=== PATIENT | female | born 2000 | race Caucasian/White ===

== ENCOUNTER 2024-10-26 10:51 | Outpatient (REF) | payer OTHER, SELFPAY ==
--- NOTE | ~2024-10-26 | XR_ITS ---
CLINICAL HISTORY: R05.9 - Cough, unspecified Two views of the chest. COMPARISON: None FINDINGS: Normal heart and mediastinal contours. No consolidation. No pleural effusion or pneumothorax. No fracture identified. IMPRESSION: 1. No consolidation. This document has been electronically signed by: Stalin Palomino MD on 10/26/2024 14:31:34
--- OUTSIDE RECORDS SUMMARY | 2024-10-26 13:22 | XMS_ITS | Encounter Summary ---
Author Organization [facility] Address [address] [place] [address] Care Team Providers Care Roll Forming Machine Set Up Operator Name Role Phone Thelma Izaguirre MD Primary Care Provider [phone] Encounter Details Date Type Department Care Team Description 08/21/2020 Orders Only Medical Records [address] [place] [address] Gerry Reid MD [address] [facility] [address] [place] [address] Social History Tobacco Use Types Packs/Day Years Used Date Smoking Tobacco: Passive Smo ke Exposure - Never Smoker Smokeless Tobacco: Never Comments:mom and step dad Alcohol Use Standard Drinks/Week Comments Yes 0 (1 standard drink = 0.6 oz pur e alcohol) Education Answer Date Recorded What is the highest level of school you have completed or the highest degree you have received? Associate degree: academic program 03/10/2020 Sex Assigned at Date Recorded Not on file Job Start Date Occupation Industry Not on file Not on file Not on file COVID-19 Exposure Response Date Recorded In the last month, have you been in contact with someone who was confirmed or suspected to have Coronavirus / COVID-19? No / Unsure 07/23/2020 2:24 PM EST documented as of this encounter Plan of Treatment Not on file documented as of this encounter Procedures Procedure Name Priority Date/Time Associated Diagnosis Comments OUTSIDE PATHOLOGY Routine 08/18/2020 documented in this encounter Results * OUTSIDE PATHOLOGY (08/18/2020) Gerry Reid MD OUTSIDE LAB documented in this encounter Visit Diagnoses Not on filedocumented in this encounter Care Teams Roll Forming Machine Set Up Operator Relationship Specialty Start Date End Date Thelma Izaguirre MD [address] [place] [address] PCP - General Internal Medicine 03/04/20 documented as of this encounter
--- OUTSIDE RECORDS SUMMARY | 2024-10-26 13:23 | XMS_ITS | Encounter Summary ---
Author Organization [facility] Address [address] [place] [address] Care Team Providers Care Admitting Manager Name Role Phone Cynthia Craven MD Primary Care Provider Thelma Clarke MD Primary Care Provider [phone] Reason for Visit * Reason Onset Date Comments Testing 05/19/2017 Cat scan of Pelv is CPT-36931 Encounter Details Date Type Department Care Team Description 05/19/2017 Telephone Pediatrics - [address] [address] Cynthia Craven MD Testing (Cat scan of Pelvis [id number]) Social History Tobacco Use Types Packs/Day Years Used Date Smoking Tobacco: Never Smokeless Tobacco: Never Comments:mom smoke Alcohol Use Standard Drinks/Week Comments No 0 (1 standard drink = 0.6 oz pur e alcohol) Sex Assigned at Date Recorded Not on file Job Start Date Occupation Industry Not on file Not on file Not on file documented as of this encounter Patient Instructions * Patient Instructions* Elaina Naranjo CNM - 05/29/2017 12:34 PM EDT I'm unable to complete the Peer to Peer review as Lila Rockwell put Shayy Craven's name on my orderfor CT scan. This took a lot of time to figure out so unless the authorization changes I will not be able to procced documented in this encounter Miscellaneous Notes * Telephone Encounter - Elaina Naranjo CNM - 05/29/2017 12:29 PM EDT sa * Telephone Encounter - Lila Hilton - 05/19/2017 1:43 PM EDT Insurance denied the cat scan of the pelvis CPT-[id number]. For peer to peer reconsideration please call option #4 Case #[id number] Please advise Thank you documented in this encounter Plan of Treatment Not on file documented as of this encounter Visit Diagnoses Not on filedocumented in this encounter Care Teams Admitting Manager Relationship Specialty Start Date End Date Cynthia Craven MD PCP - General 10/15/08 03/03/20 Thelma Izaguirre MD [address] [place] [id number] PCP - General Internal Medicine 03/04/20 documented as of this encounter
--- OUTSIDE RECORDS SUMMARY | 2024-10-26 13:23 | XMS_ITS | Encounter Summary ---
Author Organization [facility] Address [address] [place] [address] Care Team Providers Care Office Services Assistant Name Role Phone Thelma Izaguirre MD Primary Care Provider [phone] Encounter Details Date Type Department Care Team Description 09/02/2020 Orders Only Adult Medicine [address] [id number] Thelma Izaguirre MD [address] [place] [phone] Preoperative examination (Primary Dx) Social History Tobacco Use Types Packs/Day Years [...] have Coronavirus / COVID-19? No / Unsure 09/02/2020 2:10 PM EST documented as of this encounter Plan of Treatment Not on file documented as of this encounter Visit Diagnoses Diagnosis Preoperative examination- Primary Preoperative examination, unspecified documented in this encounter Care Teams Office Services Assistant Relationship Specialty Start Date End Date Thelma Izaguirre MD [address] [place] [address] PCP - General Internal Medicine 03/04/20 documented as of this encounter
--- OUTSIDE RECORDS SUMMARY | 2024-10-26 13:23 | XMS_ITS | Encounter Summary ---
Author Organization [facility] Address [address] [place] [address] Care Team Providers Care Adaptive Physical Education Teacher Name Role Phone Cynthia Craven MD Primary Care Provider Thelma Clarke MD Primary Care Provider [phone] Encounter Details Date Type Department Care Team Description 10/27/2015 Notching Press Operator Report Medical Records [address] [place] [address] Dmitri Chavez Social History Tobacco Use Types Packs/Day Years Used Date Smoking Tobacco: Never Smokeless Tobacco: Never Comments:mom smoke Alcohol Use Standard Drinks/Week Comments No 0 (1 standard drink = 0.6 oz pur e alcohol) Sex Assigned at Date Recorded Not on file Job Start Date Occupation Industry Not on file Not on file Not on file documented as of this encounter Plan of Treatment Not on file documented as of this encounter Visit Diagnoses Not on filedocumented in this encounter Care Teams Adaptive Physical Education Teacher Relationship Specialty Start Date End Date Cynthia Craven MD PCP - General 10/15/08 03/03/20 Thelma Izaguirre MD [address] [place] [address] PCP - General Internal Medicine 03/04/20 documented as of this encounter
--- OUTSIDE RECORDS SUMMARY | 2024-10-26 13:23 | XMS_ITS | Encounter Summary ---
Author Organization [facility] Address [address] [place] [phone] Care Team Providers Care Alarm Security Or Surveillance Monitor Name Role Phone Thelma Izaguirre MD Primary Care Provider [phone] Reason for Visit * Reason Onset Date Comments medication problems 10/11/2024 Encounter Details Date Type Department Care Team ([facility] Contact Info) Description 10/11/2024 [facility] [address] [place] [address] Karina Walker CN [address] [place] [address] medication problems Social History Tobacco Use Types [...] accepting calls. Will try again later. * Felicitas Dejesus - 10/11/2024 9:40 AM EST Chief Complaint/problem: pt has been having cramping since insert of mirena. Has been bleeding x8 days. Not heavy, not spotting. Asking to speak with nurse How long has the patient had this problem? Pt???s MEDICAL CARE MANAGER provider: Karina Walker CNM Last menstrual period (LMP) or EDC (due date): documented in this encounter Plan of Treatment Upcoming Encounters Date Type Department Care Team (Late st Contact Info) Description 11/11/2024 8:30 AM EDT Office Visit Obstetrics [facility]necology - [facility] [address] [place], [place] [phone] Karina Walker CNM [address] [place] [address] documented as of this encounter Visit Diagnoses Not on filedocumented in this encounter Care Teams Alarm Security Or Surveillance Monitor Relationship Specialty Start Date End Date Thelma Izaguirre MD [address] [place] [address] PCP - General Internal Medicine 03/04/20 documented as of this encounter
--- OUTSIDE RECORDS SUMMARY | 2024-10-26 13:23 | XMS_ITS | Encounter Summary ---
Author Organization [facility] Address [address] [place] [address] Care Team Providers Care Art Manager Name Role Phone Cynthia Craven MD Primary Care Provider Thelma Clarke MD Primary Care Provider [phone] Reason for Visit * Reason Onset Date Comments IMPLANON/NEXPLANON REMOVAL 03/01/2017 Encounter Details Date Type Department Care Team Description 03/01/2017 Telephone OBGYN - [place] [address] [place] [address] Elaina Naranjo CNM IMPLANON/NEXPLANON REMOVAL Social History Tobacco Use Types Packs/Day Years Used Date Smoking Tobacco: Never Smokeless Tobacco: Never Comments:mom smoke Alcohol Use Standard Drinks/Week Comments No 0 (1 standard drink = 0.6 oz pur e alcohol) Sex Assigned at Date Recorded Not on file Job Start Date Occupation Industry Not on file Not on file Not on file documented as of this encounter Miscellaneous Notes * Telephone Encounter - Toshia Sheppard M.A. - 03/13/2017 1:37 PM EDT Left message for patient. [employer] is good for Nexplanon. Patient can book nexplanon exchange with Elaina at her convenence. CMB * Telephone Encounter - Elaina Naranjo CNM - 03/13/2017 1:03 PM EDT Yes as long as someone clears her insurance for this * Telephone Encounter - ROGELIO Kyle, RN - 03/10/2017 4:51 PM EDT Called, pts mother Vandana answered, +verbal on file. Discussed notes below. She states patient is not comfortable with IUD for contraception or period control. States pt and her want nexplanon removal and another nexplanon placed. States nexplanon is due to be removed and states pt wants another nexplanon. Advised will send message to provider to see if ok to book nexplanon exchange. Please advise, ok to book nexplanon enxchange? * Telephone Encounter - Toshia Sheppard M.A. - 03/02/2017 9:10 AM EDT Left message for patient. CMB * Telephone Encounter - Yumiko Vera - 03/01/2017 3:16 PM EDT Pt returned call. Pt would like call to be made to her mother, Vandana, verbal - [phone] * Telephone Encounter - Toshia Sheppard M.A. - 03/01/2017 3:06 PM EDT Left message for patient. CMB 'Discussed option for treatment, consider changing to Davina, booklet given Will monitor for now and desires treatment or other contraception will need follow up appointment' ( Note from Elaina 05/05/16) Patient will need to make nexplanon removal consult appt. * Telephone Encounter - Yumiko Vera - 03/01/2017 3:00 PM EDT Chief Complaint/problem: Pt called to make an appointment to have her Nexplanon removed. Pt did notwish to make an appt for bc consult, states this was discussed at 05/05/16 visit with Elaina. MAYNOR checked and did not see notes or an ok for removal. Please advise, thank you. How long has the patient had this problem? Pt???s [employer]APLE [employer] provider: Elaina Naranjo CNM Last menstrual period (LMP) or EDC (due date): N/A documented in this encounter Plan of Treatment Not on file documented as of this encounter Visit Diagnoses Not on filedocumented in this encounter Care Teams Art Manager Relationship Specialty Start Date End Date Cynthia Craven MD PCP - General 10/15/08 03/03/20 Thelma Izaguirre MD [address] [place] [phone] PCP - General Internal Medicine 03/04/20 documented as of this encounter
--- OUTSIDE RECORDS SUMMARY | 2024-10-26 13:23 | XMS_ITS | Encounter Summary ---
Author Organization [facility] Address [address] [place] [address] Care Team Providers Care Furnace Repairer Helper Name Role Phone Cynthia Craven MD Primary Care Provider Thelma Clarke MD Primary Care Provider [phone] Encounter Details Date Type Department Care Team Description 05/24/2016 School Age Program Associate Report Medical Records [address] [place] [address] Venu Bhardwaj PA-C Social History Tobacco Use Types Packs/Day Years [...] on filedocumented in this encounter Care Teams Furnace Repairer Helper Relationship Specialty Start Date End Date Cynthia Craven MD PCP - General 10/15/08 03/03/20 Thelma Izaguirre MD [address] [place], [place] [id number] PCP - General Internal Medicine 03/04/20 documented as of this encounter
--- OUTSIDE RECORDS SUMMARY | 2024-10-26 13:23 | XMS_ITS | Encounter Summary ---
Author Organization [facility] Address [address] [place] [address] Care Team Providers Care Supervisor Core Shop Name Role Phone Thelma Izaguirre MD Primary Care Provider [phone] Reason for Visit * Reason Onset Date Comments REFERRAL 07/20/2021 Encounter Details Date Type Department Care Team Description 07/20/2021 Telephone General Surgery - [address] [place] [phone] Aníbal Styles PA-C REFERRAL Social History Tobacco Use Types Packs/Day Years [...] have Coronavirus / COVID-19? No / Unsure 07/20/2021 12:52 PM EST documented as of this encounter Miscellaneous Notes * Telephone Encounter - [place] - 07/20/2021 3:21 PM EST Patient said she is studying abroad next semester and would like to schedule consultation when she comes back in December. Closing referral. Reaching out to Aníbal Styles to inform patient will wait to schedule. documented in this encounter Plan of Treatment Not on file documented as of this encounter Visit Diagnoses Not on filedocumented in this encounter Care Teams Supervisor Core Shop Relationship Specialty Start Date End Date Thelma Izaguirre MD [address] [place] [id number] PCP - General Internal Medicine 03/04/20 documented as of this encounter
--- OUTSIDE RECORDS SUMMARY | 2024-10-26 13:23 | XMS_ITS | Encounter Summary ---
Author Organization [facility] Address [id number] [place] [id number] Care Team Providers Care Harvest Worker Fruit Name Role Phone Thelma Izaguirre MD Primary Care Provider [phone] Reason for Visit * Reason Comments Procedure IUD mirena Encounter Details Date Type Department Care Team ([facility] Contact Info) Description 09/30/2024 8:30 AM EST [facility] [address] [place] [address] Karina Walker CN [address] [place] [address] Encounter for IUD insertion (Primary Dx); Encounter [...] Obstetrics and Gynecology - [facility] [address] [place] [address] Karina Walker CNM [address] [place] [address] documented as of this encounter Procedures Procedure Name Priority Date/Time Associated Diagnosis Comments [place] INSERTION INTRAUTERINE DEVICE Routine 09/30/2024 9:24 AM EST Encounter for initial prescription of intrauterine contraceptive device (IUD) POC , URINE DIAGNOSTIC Routine 09/30/2024 8:53 AM EST Encounter for initial prescription of intrauterine contraceptive device (IUD) documented in this encounter Results * AZ INSERTION INTRAUTERINE DEVICE (09/30/2024 9:24 AM EST) [...] 09/30/2024 documented in this encounter Care Teams Harvest Worker Fruit Relationship Specialty Start Date End Date Thelma Izaguirre MD [address] [place] [address] PCP - General Internal Medicine 03/04/20 documented as of this encounter
--- OUTSIDE RECORDS SUMMARY | 2024-10-26 13:23 | XMS_ITS | Clinical Summary ---
Author Organization [address] Address [address] [place] [phone] Phone Care Team Providers Care Education Program Manager Name Role Phone Thelma Izaguirre MD Primary Care Provider [phone] Allergies Active Allergy Reactions Criticality Noted Date Comments Amitriptyline Dizziness 07/23/2020 Bupropion Dizziness 09/30/2024 Latex Rash 09/30/2024 Ondansetron Headache 07/23/2020 Other 07/01/2013 Seasonal allergies- sneezing Silicone 09/30/2024 Medications sertraline (ZOLOFT) 25 mg tablet Take 1 tablet (25 mg total) by mouth 1 (one) time each day in the morning. 4 Active cetirizine (ZyrTEC) 10 mg tablet Take 1 tablet (10 mg total) by mouth 1 (one) time each day. 4 Active hydrOXYzine HCL (ATARAX) 25 mg tablet Take 1 tablet (25 mg total) by mouth every 8 (eight) hours if needed for anxiety. 4 Active busPIRone (BUSPAR) 5 mg tablet Take 1 tablet (5 mg total) by mouth 3 (three) times a day if needed. 4 Active albuterol HFA (PROAIR HFA ; PROVENTIL HFA ; VENTOLIN HFA) 90 mcg/actuation inhaler Take 2 Puffs by mouth every 4 hours as needed for Cough, Wheezing or Shortness of Breath Active Hospital, Clinic, or Other Facility Administered Medication Ordered Dose Route Frequency Start Date End Date Status levonorgestreL (MIRENA) 21 mcg/24hr (up to 8 yrs) 52 mg IUD 52 mgIndications:Encount er for initial prescription of intrauterine contraceptive device (IUD) 52 mg utrn Once PRN Procedure 09/30/2024 09/30/2024 Ended Active Problems Problem Noted Date Diagnosed Date LGSIL on Pap smear of cervix 06/14/2023 Overview (07/30/2024): 2022: LSIL Repeat Cotesting 2023 Gastroesophageal reflux disease without esophagi tis 11/26/2021 COVID-19 virus infection 10/25/2021 Overview (07/30/2024): 08/03 Anxiety 08/24/2015 Overview (07/30/2024): [facility] 08/29; never seen Referred to Behavioral Health at [facility] 08/30 As of 08/31 seeing therapist at [facility], doing well Migraine syndrome 01/17/2015 Overview (07/30/2024): 08/31 - rare Last Assessment & Plan: 02/25 - start amitriptyline 10 mg q HS, increase by 10 mg q 2 weeks till relief obtained Followup 4-6 wks Schedule EKG Acne 10/31/2012 Overview (07/30/2024): Last Assessment & Plan: 12-15 prn topical meds Solar urticaria 10/31/2012 Overview (07/30/2024): Last Assessment & Plan: 12-15 prn hives in springtime Allergic rhinitis 07/27/2010 Overview (07/30/2024): 07/17 allergic to cats Clemastine 09/19, loratadine 11/18 Flonase 12/25,07/28 Last Assessment & Plan: Flonase 12/25,12-15 Asthma 07/27/2010 Overview (07/30/2024): Last Assessment & Plan: 07-28 prn proair Encounters Date Type Department Care Team Description 10/11/2024 Telephone Obstetrics and Gynecology - [address] [place] [phone] Karina Walker CNM medication problems 09/30/2024 8:30 AM EST Procedure visit Obstetrics and Gynecology - [address] [place] [address] Karina Walker CNM Encounter for IUD insertion (Primary Dx); Encounter for initial prescription of intrauterine contraceptive device (IUD) 09/02/2024 11:30 AM EST Office Visit Obstetrics and Gynecology - [facility] De[facility] [place] [address] Karina Walker CNM Encounter for initial prescription of contraceptives, unspecified contraceptive (Primary Dx) from Last 3 Months Immunizations Name Administration Dates Next Due DTaP (Infanrix) 6wks to less than 7yo ,08/22/2000,1999,06/21,1999 [id number] (Pentacel) 2mo to less than 5yo 05/19/2000,1999,1999,04/16 HPV, Quadrivalent 01/21/2013,09/17/2012,06/18/20 12 Hepatitis B Pediatric (Enger ix B; Recombivax HB) to less than 20 yo 1999,1999,1999 IPV Inactivated polio (Ipol) 6wks and older 02/25/2003,02/24/2000,1999,04/16 Influenza Quadravalent, MDCK , 0.5ml, preservative free (Flucelvax) 6mo and older 07/20/2021,07/01/2020 Influenza trivalent, 0.5mL, preservative free (Fluarix; FluLaval; Fluzone) ages 6mo and older (Afluria) 3 years and older 08/02/2019,09/12/2017,07/12/2016,05/20,04/28/2014 Influenza trivalent, with pr eservative (Fluzone; Afluria) 6mo and older 07/01/2013,06/18/2012,05/30/2011,05/25 MMR, measles mumps and rubel la Live (Priorix; M-M-R II) 12mo and older 02/25/2003,05/19/2000 Meningococcal MCV4P 07/21/2015,05/25/2010 Moderna SARS-CoV-2 COVID-19, mRNA, LNP-S, preservative free 01/07/2021 Pneumococcal Conjugate Vacci ne, 7 Valent 08/22/2000,05/19/2000 Pneumococcal polysaccharide 23 valent (Pneumovax 23) 2yo and older 03/10/2020 Tdap Tetanus diptheria acell ular pertussis (Boostrix; Adacel) 7yo and older 03/10/2020,05/25/2010 Varicella live (Varivax) 12m o and older 05/25/2010,02/24/2000 Surgical History Surgery Date Site/Laterality Comments WISDOM TOOTH EXTRACTION PROCEDURE: HISTORICAL WISDOM TEETH EXTRACTION Medical History Medical History Date Comments Unspecified family circumstance 12/16 DX:Unspecified family circumstance; COMMENT: 50A Allergic rhinitis due to oth er allergen 12/25/2006 DX:Allergic rhinitis due to other allergen Constipation 11/26/2007 DX:Constipation; COMMENT: Miralax 12-19 Acute suppurative otitis med ia without spontaneous rupture of eardrum 07/21 DX:Acute suppurative otitis media without spontaneous rupture of eardrum Pneumonia, organism unspecified(486) DX:Pneumonia, organism unspecified(486); COMMENT: 10/14, 05/20 Croup DX:Croup; COMMEN T: Otitis media DX:Otitis media; COMMENT: , , 09/15, 01/14, 05/17, 07/21 Abdominal pain 03/17/2011 DX:Abdominal belem n; COMMENT: see resolved problems [place]umboldt-Schlatter's disease DX:Os good-Schlatter's disease; COMMENT: see resolved problems Menarche DX:Menarche; COM MENT: age 9 Headache disorder 01/17/2015 DX:Headache di sorder; COMMENT: 01/26 - MRI of brain nl; started naprosyn and made apt pedi neuro 01/23/15 - likely stress -related, continue naprosyn 500 BID for another few wks, then stop; if headaches persist try amitriptyline prophylaxis 02/25 - start amitriptyline 10 mg q HS, increase by 10 mg q 2 weeks till relief obtained Followup 4-6 wks Schedule EKG Turner splints 05/14/2014 DX:Turner splints; COMMENT: 04/27, xrays neg, ortho consult, bone scan consistent with turner splints, ref to PT Abscess of thigh 03/14/2014 DX:Abscess of t high; COMMENT: 02/24, NOT MRSA Pyogenic granuloma of skin 08/26/2013 DX:Py ogenic granuloma of skin Scoliosis 07/01/2013 DX:Scoliosis; CO MMENT: 06/26 4 deg on scoliometer Acne 10/31/2012 DX:Acne; COMMENT : Derm 10/24, tretinoin Solar urticaria 10/31/2012 DX:Solar urticar ia; COMMENT: Derm eval 10/24 Menorrhagia 03/17/2011 DX:Menorrhagia; COMMENT: SENIOR SITE MANAGER consult, depo 01/21; stopped due to adverse effects; had implanon inserted 07/24 Acute sinusitis 12/27/2010 DX:Acute sinusit is; COMMENT: 07/16, 08/18, 08/19, 09/20, 08/21, 10/20, 12/20, 01/20, 05/22, 07/23, 12/22 Allergic rhinitis 07/27/2010 DX:Allergic rh initis; COMMENT: 07/17 Clemastine 09/19, loratadine 11/18 Flonase 12/25 Asthma 07/27/2010 DX:Asthma; COMME NT: With URI 12/2012-02-11: Asthma Control Test Total Score: 20 Knee injury 05/18/2016 DX:Knee injury; COMMENT: 05/29 - xray neg, seen by Ortho, ? Meniscal injury, MRI neg, dx patellofem symptoms, resolved with PT Concussion 01/18/2012 DX:Concussion; C OMMENT: 01/23 , again 08/29 - persistent sx, [facility] Returned to school fulltime late Feburary, gradual return to play mid october COVID-19 virus infection 10/25/2021 DX:COVI D-19 virus infection; COMMENT: 08/03 Family History Medical History Relation Name Comments Diabetes Aunt maternal with renal fail ure LASHONDA disease Brother Bipolar Asthma Father Other: Blood clot Maternal Grandmother wi th IVC; thyroid disorder Other: Niki's Mother HLD, DVTs Asthma Sister half sibling Relation Name Status Comments Aunt maternal Alive Brother Alive Father Alive 1972 Maternal Grandfather adopted Alive Maternal Grandmother Alive Mother Alive Paternal Grandfather trauma Paternal Grandmother Sister half sibling Alive Social History Tobacco Use Types Packs/Day Years [...] on file Sexual Orientation Not on file Obstetrics History Para Term AB IAB SAB Ectopic Multiple Livin g Live Births 0 0 0 0 0 0 0 0 0 0 0 Last Filed Vital Signs Vital Sign Reading [...] Mass Index 39.58 09/30/2024 8:40 AM EST Plan of Treatment Upcoming Encounters Date Type Department Care Team (Late st Contact Info) Description 11/11/2024 8:30 AM EDT Office Visit Obst[facility]s [facility]ne[facility] - [facility] [address] [place] [address] Karina Walker CNM [address] [place] [address] Health Maintenance Due Date Last Done Comments Depression Screening 07/23/2022 Social Influencers of Health Screening 07/23/2022 COVID-19 Vaccine ( season) 2024 07/28/2021, 01/07/2021, 12/10/2020 Influenza Vaccine (#1) 2024 , 07/01/2020, 08/02/2019, Additional history exists Cervical Cancer Screening: Pap Smear 05/25/2024 05/25/2023, 05/25/2023 Cholesterol Screening (Lipid Panel) 03/10/2025 03/10/2020 DTaP,Tdap,and Td Vaccines (8 - Td or Tdap) 03/10/2030 03/10/2020, 05/25/2010, 02/25/2003, Additional history exists Pneumococcal Vaccine: Pediatrics (0 to 5 Years) and At-Risk Patients (6 to 64 Years) (2 of 2 - PCV20 or PCV21) 2049 03/10/2020, 08/22/2000, 05/19/2000 Hepatitis B Vaccines Completed 1999, 1999, 1999 HIB Vaccines Completed 05/19/2000, 01/2000, 1999, Additional history exists IPV Vaccines Completed 02/25/2003, 01/2000, 02/24/2000, Additional history exists MMR Vaccines Completed 02/25/2003, 05/19/2000 Varicella Vaccines Completed 05/25/2010, 02/24/2000 HPV Vaccines Completed 01/21/2013, 11/2012, 06/18/2012 Meningococcal ACWY Vaccine Completed 07/21/2015, Gonorrhea/Chlamydia Screening Discontinued 05/25/2023 HIV Screening Completed 05/25/2023 Hepatitis C Screening Completed 05/25/2023 Hepatitis A Vaccines Aged Out No long er eligible based on patient's age to complete this topic Meningococcal B Vacine Aged Out No lo nger eligible based on patient's age to complete this topic RSV Immunization Patients Under 20 months Aged Out No longer eligible based on patient's age to complete this topic Procedures Procedure Name Priority Date/Time Associated Diagnosis Comments [place] INSERTION INTRAUTERINE DEVICE Routine 09/30/2024 9:24 AM EST Encounter for initial prescription of intrauterine contraceptive device (IUD) POC , URINE DIAGNOSTIC Routine 09/30/2024 8:53 AM EST Encounter for initial prescription of intrauterine contraceptive device (IUD) POC , URINE DIAGNOSTIC Routine 09/02/2024 11:02 AM EST Encounter for initial prescription of contraceptives, unspecified contraceptive HM HEPATITIS C SCREENING Routine 05/25/2023 HM HIV SCREENING Routine 05/25/2023 HM HPV Routine 05/25/2023 HM GONORRHEA/CHLAMYDIA SCRREENING Routine 05/25/2023 LIPID PANEL Routine 03/10/2020 from Last 3 Months or Most Recently Relevant to Health Maintenance Results * NH INSERTION INTRAUTERINE DEVICE (09/30/2024 9:24 AM EST) [...] follow up for string check: yes ?? Result [facility] Karina Walker CNM IN CLINIC/BEDSIDE ORDERABLE S Final Result * POC , urine manually resulted (09/30/2024 8:53 AM EST) Only the most recent of2 resultswithin the time period is included. [facility] HCG, Ur POC Negative Negative POC hCG Int QC Pass? Yes Yes Urine Urine specimen obtained by clean catch procedure / Unknown 09/30/2024 8:53 AM EST Result [facility] Karina Walker CNM POINT OF CARE TEST ENTER/ED IT ORDERABLES Final Result * Cervical Cancer Screening: HPV (05/25/2023) [facility] Cervical Cancer Screening: HPV abstracted, no interpretation Result [facility] Historical Provider HEALTH MAINTENANCE Final Result * HIV Screening (05/25/2023) [facility] HIV Screening abstracted Result [facility] Historical Provider HEALTH MAINTENANCE Final Result * Hepatitis C Screening (05/25/2023) [facility] Hepatitis C Screening abstracted Result [facility] Historical Provider HEALTH MAINTENANCE Final Result * Gonorrhea/Chlamydia Screening (05/25/2023) [facility] Gonorrhea/Chla mydia Screening abstracted Result [facility] Historical Provider HEALTH MAINTENANCE Final Result * Lipid panel (03/10/2020) LDL/HDL Ratio 4 0 - 4 Triglycerides 131 0 - 150 mg/dL Cholesterol 171 0 - 200 mg/dL HDL 46 >=40 mg/dL LDL Cholesterol 99 0 - 100 mg/dL Blood Venous blood specimen / Unknown us Historical Provider LAB BLOOD ORDERABLES Mariah l Result from Last 3 Months or Most Recently Relevant to Health Maintenance Insurance [employer] Care Teams Education Program Manager Relationship Specialty Start Date End Date Thelma Izaguirre MD [address] [place] [phone] PCP - General Internal Medicine 03/04/20
--- OUTSIDE RECORDS SUMMARY | 2024-10-26 13:23 | XMS_ITS | Encounter Summary ---
Author Organization [facility] Address [address] [place] [address] Care Team Providers Care Alligator Shear Operator Name Role Phone Cynthia Craven MD Primary Care Provider Thelma Clarke MD Primary Care Provider [phone] Reason for Visit * Reason Comments E-prescribe Rx Request Encounter Details Date Type Department Care Team Description 05/26/2016 Refill Pediatrics - [address] [address] Cynthia Craven MD E-prescribe Rx Request Social History Tobacco Use Types Packs/Day Years [...] encounter Miscellaneous Notes * Telephone Encounter - Cynthia Craven MD - 05/27/2016 8:39 AM EDT Will have BSRs call to book PE * Telephone Encounter - Sunshine Cervantesvanessa - 05/26/2016 2:26 PM EDT When was patients last PE/WCC? 07/21/2015 When is patients next PE/WCC scheduled? Did not want to sched 05/18 Cynthia Craven RX REQUEST WHEN MED IS ON THE LIST: All of the medications requested were on the CURRENT MEDS list Did you check the Pharmacy information above?: YES Indicate how soon the patient needs the script: KIERA Patient would like script to be: E-PRESCRIBED/FAXED TO PHARMACY Is the doctor here today?: NO Can the message wait until the doctor returns?: NO Has the patient been told that the prescription will not be filled until the end of the day? NO Cynthia Craven Payor: SMILEY / Plan: POS $0 [employer] [id number] / Product Type: POS [id number] documented in this encounter Plan of Treatment Not on file documented as of this encounter Visit Diagnoses Not on filedocumented in this encounter Care Teams Alligator Shear Operator Relationship Specialty Start Date End Date Cynthia Craven MD PCP - General 10/15/08 03/03/20 Thelma Izaguirre MD [address] [place] [id number] PCP - General Internal Medicine 03/04/20 documented as of this encounter
--- OUTSIDE RECORDS SUMMARY | 2024-10-26 13:23 | XMS_ITS | Encounter Summary ---
Author Organization [facility] Address [address] [place] [address] Care Team Providers Care Tube Cutter Operator Name Role Phone Cynthia Craven MD Primary Care Provider Thelma Clarke MD Primary Care Provider [phone] Encounter Details Date Type Department Care Team Description 09/18/2014 Telephone Pediatrics - [address] [address] Vannesa Silva MD Social History Tobacco Use Types Packs/Day Years [...] encounter Miscellaneous Notes * Telephone Encounter - Vannesa Silva MD - 09/18/2014 12:04 PM EST Spoke with mom- still c/o back pain and intermittent fevers. She forced herself to go back to school. Will have her stop amoxil and start cipro 500 mg bid for 10 days. Mom understands to have her follow up if she is vomiting medication- if fever and symptoms not improving 48 hours on treatment and next week to see Dr. Craven. documented in this encounter Plan of Treatment Not on file documented as of this encounter Visit Diagnoses Not on filedocumented in this encounter Care Teams Tube Cutter Operator Relationship Specialty Start Date End Date Cynthia Craven MD PCP - General 10/15/08 03/03/20 Thelma Izaguirre MD [address] [place] [id number] PCP - General Internal Medicine 03/04/20 documented as of this encounter
--- OUTSIDE RECORDS SUMMARY | 2024-10-26 13:23 | XMS_ITS | Encounter Summary ---
Author Organization [facility] Address [address] [place] [address] Care Team Providers Care Manager Social Name Role Phone Cynthia Craven MD Primary Care Provider Robert Card Primary Care Provider UnavailIlsa Avalos Primary Care Provider [phone] Evan Hazel Primary Care Provider [phone] Thelma Izaguirre MD Primary Care Provider [phone] Encounter Details Date Type Department Care Team Description 1999 [facility] [place] [address] [place] [address] Alexander Mane MD Social History Tobacco Use Types Packs/Day Years Used Date Smoking Tobacco: Never Assessed Sex Assigned at Date Recorded Not on file Job Start Date Occupation Industry Not on file Not on file Not on file documented as of this encounter Plan of Treatment Not on file documented as of this encounter Visit Diagnoses Not on filedocumented in this encounter Care Teams Manager Social Relationship Specialty Start Date End Date Cynthia Craven MD PCP - General 10/15/08 03/03/20 Robert Williamson PCP - General 99 10/14/08 Ilsa Baum [address] [place] [id number] PCP - General 1999 99 Evan Hazel [address] [place] [address] PCP - General 1999 1999 Thelma Izaguirre MD [address] [place] [phone] PCP - General Internal Medicine 03/04/20 documented as of this encounter
--- OUTSIDE RECORDS SUMMARY | 2024-10-26 13:23 | XMS_ITS | Encounter Summary ---
Author Organization [facility] Address [address] [place] [address] Care Team Providers Care Furnace Operator And Tender Name Role Phone Cynthia Craven MD Primary Care Provider Thelma Clarke MD Primary Care Provider [phone] Reason for Visit * Reason Onset Date Comments Error 01/14/2015 Encounter Details Date Type Department Care Team Description 01/14/[address] [address] Cynthia Craven MD Error Social History Tobacco Use Types Packs/Day Years [...] filedocumented in this encounter Care Teams Furnace Operator And Tender Relationship Specialty Start Date End Date Cynthia Craven MD PCP - General 10/15/08 03/03/20 Thelma Izaguirre MD [address] [place] [id number] PCP - General Internal Medicine 03/04/20 documented as of this encounter
--- OUTSIDE RECORDS SUMMARY | 2024-10-26 13:23 | XMS_ITS | Encounter Summary ---
Author Organization [facility] Address [address] [place] [address] Care Team Providers Care Email Developer Name Role Phone Cynthia Craven MD Primary Care Provider Thelma Clarke MD Primary Care Provider [phone] Encounter Details Date Type Department Care Team Description 01/27/2010 Release of Information Medical Records [address] [place] [address] Abstract, Provider Social History Tobacco Use Types Packs/Day Years Used Date Smoking Tobacco: Never Comments:mom smoke Alcohol Use Standard [...] on filedocumented in this encounter Care Teams Email Developer Relationship Specialty Start Date End Date Cynthia Craven MD PCP - General 10/15/08 03/03/20 Thelma Izaguirre MD [address] [place] [id number] PCP - General Internal Medicine 03/04/20 documented as of this encounter
--- OUTSIDE RECORDS SUMMARY | 2024-10-26 13:23 | XMS_ITS | Encounter Summary ---
Author Organization [facility] Address [address] [place] [address] Care Team Providers Care Mattress Spring Encaser Name Role Phone Thelma Izaguirre MD Primary Care Provider [phone] Encounter Details Date Type Department Care Team Description 10/25/2021 Telephone Adult Medicine [address] [id number] Thelma Izaguirre MD [address] [place] [address] Social History Tobacco Use Types Packs/Day Years [...] have Coronavirus / COVID-19? No / Unsure 10/25/2021 2:42 PM EDT documented as of this encounter Plan of Treatment Not on file documented as of this encounter Visit Diagnoses Not on filedocumented in this encounter Care Teams Mattress Spring Encaser Relationship Specialty Start Date End Date Thelma Izaguirre MD [address] [place] [address] PCP - General Internal Medicine 03/04/20 documented as of this encounter
--- OUTSIDE RECORDS SUMMARY | 2024-10-26 13:23 | XMS_ITS | Encounter Summary ---
Author Organization [facility] Address [address] [place] [address] Care Team Providers Care Warehouse Shipping Clerk Name Role Phone Thelma Izaguirre MD Primary Care Provider Encounter Details Date Type Department Care Team Description 10/11/2022 Shell Maker Lockstitch Report Medical Records [address] [place] [address] Indra Lopez PA-C Social History Tobacco Use Types Packs/Day [...] on filedocumented in this encounter Care Teams Warehouse Shipping Clerk Relationship Specialty Start Date End Date Thelma Izaguirre MD [address] [place], [place] [phone] PCP - General Internal Medicine 03/04/20 documented as of this encounter
--- OUTSIDE RECORDS SUMMARY | 2024-10-26 13:23 | XMS_ITS | Encounter Summary ---
Author Organization [facility] Address [address] [place] [address] Care Team Providers Care Real Estate Professor Name Role Phone Cynthia Craven MD Primary Care Provider Thelma Clarke MD Primary Care Provider [phone] Encounter Details Date Type Department Care Team Description 10/01/2015 High School Foreign Language Teacher Report Medical Records [address] [place] [address] Dmitri Chavez Social History Tobacco Use Types [...] on filedocumented in this encounter Care Teams Real Estate Professor Relationship Specialty Start Date End Date Cynthia Craven MD PCP - General 10/15/08 03/03/20 Thelma Izaguirre MD [address] [place] [address] PCP - General Internal Medicine 03/04/20 documented as of this encounter
--- OUTSIDE RECORDS SUMMARY | 2024-10-26 13:23 | XMS_ITS | Encounter Summary ---
Author Organization [facility] Address [address] [place] [address] Care Team Providers Care Ornamental Ironworker Helper Name Role Phone Thelma Izaguirre MD Primary Care Provider [phone] Reason for Visit * Reason Onset Date Comments Appointment-Internal Referral 04/06/2020 De rmmono Encounter Details Date Type Department Care Team Description 04/06/2020 Telephone Adult Medicine [facility] [address] [place] [address] Elisha Munguia PA-C [address] [place] [address] Appointment-Internal Referral (Dermatology) Social History Tobacco Use Types Packs/Day Years [...] encounter Miscellaneous Notes * Telephone Encounter - Georgette Lozada - 04/06/2020 8:47 AM EDT Referred toDermatology FYI to referring No response from pt All attempts exhausted to reach patient to book. documented in this encounter Plan of Treatment Not on file documented as of this encounter Visit Diagnoses Not on filedocumented in this encounter Care Teams Ornamental Ironworker Helper Relationship Specialty Start Date End Date Thelma Izaguirre MD [address] [place] [id number] PCP - General Internal Medicine 03/04/20 documented as of this encounter
== END 2024-10-26 10:52 | disposition home or self-care (01) ==
LOC: HO.HMGCX 10:51
PROVIDERS: PCP Pediatrics; Visit Provider Physician Assistant Medical
DX: R05.1 Acute cough (principal)
CPT/HCPCS: 71046

== ENCOUNTER 2024-10-26 10:51 | Outpatient (AMB) | payer OTHER, SELFPAY ==
--- OUTSIDE RECORDS SUMMARY | 2024-10-26 10:53 | XMS_ITS | Encounter Summary ---
Author Organization [facility] Address [id number] [place] [phone] Care Team Providers Care Legal Referee Name Role Phone Thelma Izaguirre MD Primary Care Provider [phone] Reason for Visit * Reason Onset Date Comments medication problems 10/11/2024 Encounter Details Date Type Department Care Team ([facility] Contact Info) Description 10/11/2024 [facility] [address] [place] [address] Karina Walker CN [address] [place] [address] medication problems Social History Tobacco Use Types Packs/Day Years Used Date Smoking Tobacco: Never Smokeless Tobacco: Never Alcohol Use Standard Drinks/Week Comments Yes 0 (1 standard drink = 0.6 oz pur e alcohol) Comments No Sex and Gender Information Value Date Recorded Sex Assigned at Not on file Legal Sex Female 10:55 AM EST Gender Identity Not on file Sexual Orientation Not on file documented as of this encounter Progress Notes * Divya Marte RN - 10/11/2024 4:21 PM EST Spoke with pt- had IUD inserted on 09/30/24. C/o cramping and bleeding. Denies heavy bleeding. Advised irreg bleeding and/or spotting can occur for a few months after having an IUD inserted. Advised Ibuprofen 600-800 mg every 6-8 hrs and apply heat to lower abdomen. Advised to go to ER if soaking pads occurs. Pt agrees. * Divya Marte RN - 10/11/2024 9:59 AM EST Call to pt- given number states NOT accepting calls. Will try again later. * Feliciats Dejesus - 10/11/2024 9:40 AM EST Chief Complaint/problem: pt has been having cramping since insert of mirena. Has been bleeding x8 days. Not heavy, not spotting. Asking to speak with nurse How long has the patient had this problem? Pt???s RIVETING MACHINE OPERATOR AUTOMATIC provider: Karina Walker CNM Last menstrual period (LMP) or EDC (due date): documented in this encounter Plan of Treatment Upcoming Encounters Date Type Department Care Team (Late st Contact Info) Description 11/11/2024 8:30 AM EDT Office Visit Obstetrics [facility]necology - [facility] [address] [place], [place] [phone] Karina Walker CNM [address] [place] [address] documented as of this encounter Visit Diagnoses Not on filedocumented in this encounter Care Teams Legal Referee Relationship Specialty Start Date End Date Thelma Izaguirre MD [address] [place] [address] PCP - General Internal Medicine 03/04/20 documented as of this encounter
--- OUTSIDE RECORDS SUMMARY | 2024-10-26 10:53 | XMS_ITS | Encounter Summary ---
Author Organization [facility] Address [address] [place] [phone] Care Team Providers Care Basket Mender Name Role Phone Thelma Izaguirre MD Primary Care Provider [phone] Reason for Visit * Reason Comments Procedure IUD mirena Encounter Details Date Type Department Care Team ([facility] Contact Info) Description 09/30/2024 8:30 AM EST Procedure visit [facility] [address] [place] [address] Karina Walker CN [address] [place] [address] Encounter for IUD insertion (Primary Dx); Encounter for initial prescription of intrauterine contraceptive device (IUD) Social History Tobacco Use Types Packs/Day Years Used Date Smoking Tobacco: Never Smokeless Tobacco: Never Tobacco Cessation:Counseling Given: Not Answered Alcohol Use Standard Drinks/Week Comments Yes 0 (1 standard drink = 0.6 oz pur e alcohol) Comments No Sex and Gender Information Value Date Recorded Sex Assigned at Not on file Legal Sex Female 10:55 AM EST Gender Identity Not on file Sexual Orientation Not on file documented as of this encounter Last Filed Vital Signs Vital Sign Reading Time Taken Comments Blood Pressure 128/77 09/30/2024 8:40 AM EST Pulse 77 09/30/2024 8:40 AM EST Temperature - - Respiratory Rate 18 09/30/2024 8:40 AM EST Oxygen Saturation - - Inhaled Oxygen Concentration - - Weight 131 kg (289 lb 12.8 oz) 09/30/2024 8:40 A M EST Height 182.2 cm (5' 11.75 ) 09/30/2024 8:[address] Body Mass Index 39.58 09/30/2024 8:40 AM EST documented in this encounter Progress Notes * Karina Walker CNM - 09/30/2024 8:30 AM ESTAssociated Order(s): IUD Post-Procedure Diagnose(s): Encounter for initial prescription of intrauterine contraceptive device(IUD) IUD Insertion Date/Time: 09/30/2024 9:24 AM Performed by: Karina Walker CNM Authorized by: Karina Walker CNM Informed Consent: Relevant images/test results available and reviewed: yes Health status cleared: Yes Procedure/treatment, purpose, treatment alternatives, risks/potential complications and benefits explained: yes Patient questions answered: yes Patient agrees, verbalizes understanding, and wants to proceed: yes Consent given by: Patient Informed consent discussion completed by Physician/KATERIN with patient: Written; patient signed and dated; copy to patient Pre-procedure timeout performed: yes Pre Procedure: Negative urine test: Yes Negative serum test: Not indicated Gonorrhea/chlamydia test: Not indicated Insertion Procedure: Speculum placed in vagina and cervix prepped with: Betadine Cervix stablized: With tenaculum Cervical dilation: no Uterus sounded: yes Uterus sound depth (cm): 8 IUD type: Mirena IUD insertion successful: yes Medication Administration: 52 mg levonorgestreL 21 mcg/24hr (up to 8 yrs) 52 mg Hemostasis achieved with: Applied pressure Complications: no Strings trimmed: yes Post-procedure: Ultrasound confirmed placement: no Patient tolerated procedure well: yes Post procedure instructions given: yes Patient will follow up for string check: yes documented in this encounter Plan of Treatment Upcoming Encounters Date Type Department Care Team (Late st Contact Info) Description 11/11/2024 8:30 AM EDT Office Visit Obstetrics and Gynecology - [facility] [address] [place] [address] Karina Walker CNM [address] [place] [address] documented as of this encounter Procedures Procedure Name Priority Date/Time Associated Diagnosis Comments OK INSERTION INTRAUTERINE DEVICE Routine 09/30/2024 9:24 AM EST Encounter for initial prescription of intrauterine contraceptive device (IUD) POC , URINE DIAGNOSTIC Routine 09/30/2024 8:53 AM EST Encounter for initial prescription of intrauterine contraceptive device (IUD) documented in this encounter Results * OK INSERTION INTRAUTERINE DEVICE (09/30/2024 9:24 AM EST) Narrative Karina Walker CNM - 09/30/2024 9:24 AM EST Karina Walker CNM ? 09/30/2024 ??9:25 AM IUD Insertion ?? Date/Time: 09/30/2024 9:24 AM Performed by: Karina Walker CNM Authorized by: Karina Walker CNM ?? Informed Consent: ??Relevant images/test results available and reviewed: yes ?Health status cleared: ??Yes ??Procedure/treatment, purpose, treatment alternatives, risks/potential complications and benefits explained: yes ?Patient questions answered: yes ?Patient agrees, verbalizes understanding, and wants to proceed: yes ?Consent given by: ??Patient ??Informed consent discussion completed by Physician/KATERIN with patient: ?? Written; patient signed and dated; copy to patient ??Pre-procedure timeout performed: yes ?? Pre Procedure: ??Negative urine test: ??Yes ??Negative serum test: ??Not indicated ??Gonorrhea/chlamydia test: ??Not indicated Insertion Procedure: ??Speculum placed in vagina and cervix prepped with: ??Betadine ??Cervix stablized: ??With tenaculum ??Cervical dilation: no ?Uterus sounded: yes ?Uterus sound depth (cm): ??8 ??IUD type: Mirena ?IUD insertion successful: yes ?Medication Administration: ??52 mg levonorgestreL 21 mcg/24hr (up to 8 yrs) 52 mg ??Hemostasis achieved with: ??Applied pressure ??Complications: no ?Strings trimmed: yes ?? Post-procedure: ??Ultrasound confirmed placement: no ?Patient tolerated procedure well: yes ?Post procedure instructions given: yes ?Patient will follow up for string check: yes ?? us Karina Walker CNM IN CLINIC/BEDSIDE ORDERABLE S Final Result * POC , urine manually resulted (09/30/2024 8:53 AM EST) HCG, Ur POC Negative Negative POC hCG Int QC Pass? Yes Yes Urine Urine specimen obtained by clean catch procedure / Unknown 09/30/2024 8:53 AM EST us Karina Walker CNM POINT OF CARE TEST ENTER/ED IT ORDERABLES Final Result documented in this encounter Visit Diagnoses Diagnosis Encounter for IUD insertion- Primary Insertion of intrauterine contraceptive device Encounter for initial prescription of intrauterine contraceptive device (IUD) documented in this encounter Administered Medications Inactive Administered Medications - up to 3 most recent administrations Medication Order MAR Action Action Date Dose Rate Site levonorgestreL (MIRENA) 21 mcg/24hr (up to 8 yrs) 52 mg IUD 52 mg 52 mg, intrauterine, Once PRN Procedure, Starting on Mon09/30/24 at 0924, For 1 doseIndications:Encounter for initial prescription of intrauterine contraceptive device (IUD) Given 09/30/2024 9:24 AM EST 52 mg documented in this encounter Orders Medications Ordered That Blake ht Not Have Been Administered Count Last Ordered Date First Ordered Date levonorgestreL (MIRENA) 21 m cg/24hr (up to 8 yrs) 52 mg IUD 52 mg 1 09/30/2024 documented in this encounter Care Teams Basket Mender Relationship Specialty Start Date End Date Thelma Izaguirre MD [address] [place] [address] PCP - General Internal Medicine 03/04/20 documented as of this encounter
--- NOTE | 2024-10-26 12:49 | MHC.OFFWIV ---
Intake Vital Signs 10/26/24 12:58 Height 5 ft 11 in Weight 285 lb BMI 39.7 BP 118/78 Blood Pressure Location Lt brachial Position Sitting Pulse 81 Pulse Source Pulse Oximeter Temp 98.1 F Temp Source Oral Pulse Oximetry (%) 98 Intake Visit Reasons: PHYSIOTHERAPIST'S ASSISTANT-cough Intake Note: pt is here for cough Patient Tobacco Use Status: Never used Tobacco Accompanied by: Self / Same As Patient Allergies No Known Allergies Allergy (Verified 10/26/24 12:50) Do you need a note to return to daycare/school/sports/work: Yes HPI PHYSIOTHERAPIST'S ASSISTANT-cough HPI Details Patient is a 24-year-old female with history of asthma, who comes to the walk-in clinic complaining of persistent cough. She reports that her family had all come down with flu over the last week or so, and she was positive also. The worst of her symptoms have resolved, however she continues with a chronic cough mostly at night, and upon wakening in the morning, and it is productive of phlegm. While she is supine, she does not have a cough during the day. She denies fever or chills, nausea vomiting or diarrhea, shortness of breath or chest pain, dizziness or weakness, myalgias or malaise, or other significant associated symptoms currently. [facility] Social History Patient Tobacco Use Status: Never used Tobacco Review of Systems Const All systems reviewed & are unremarkable except as noted in HPI and below Physical Exam Vital Signs: Last Vital Signs Temp 98.1 F 10/26/24 12:58 Pulse 81 10/26/24 12:58 BP 118/78 10/26/24 12:58 Pulse Ox 98 10/26/24 12:58 BMI result Body Mass Index 39.7 Const General: cooperative, healthy appearing, comfortable, no acute distress, alert, awake, Physically active and well groomed; No anxious, diaphoretic, ill appearing, intoxicated appearing, poor hygiene or tired appearing Nutritional Appearance: average body habitus Orientation/consciousness: oriented to person Limitations: no limitations HEENT Head: Yes normal to inspection, Yes normocephalic and Yes atraumatic Ears: hearing grossly normal bilaterally, external ears normal, TM's normal bilaterally and EAC's normal General nose exam: Normal external nose present, Normal nares present, No nasal polyps present, Normal nasal mucous membranes and turbinates present, Normal septum present and No nasal discharge present Face and sinus: Yes normal facial exam, Yes sinuses nontender and Yes face symmetric Mouth: Normal oral and palatal mucosa present, lip normal and tongue normal Throat: No peritonsillar mass, No postnasal drainage, No uvular edema and No cobblestoning Eyes General: appearance normal, both eyes and all related structures Neck Neck: Yes normal visual inspection, Yes no lymphadenopathy, Yes trachea midline, Yes supple and No anterior neck swelling Chest Chest palpation & inspection: normal palpation of entire chest wall Resp Effort & Inspection: normal respiratory effort, able to speak in complete sentences, no audible wheezes, no cough, no grunting, not labored, no nasal flaring, no retractions and symmetric chest movement Auscultation: clear to auscultation bilaterally, no crackles, no rales, no rhonchi, no wheezes, lung sounds not diminished and No rub present Cardio Palpation: normal PMI Rate: regular rate Rhythm: regular rhythm Heart sounds: S1 normal heart sound present and S2 normal heart sound present Skin Other: Good color, warm and dry Neuro General: oriented to person Psych Appearance: grossly normal Mental Status: mental status grossly normal Speech and movement: Normal speech and movement present Affect: normal affect Attitude: cooperative Thought process: Normal thought process present Insight: Good insight present (Psych) Judgement: Good judgement present (Psych) Results Reviewed Results Reviewed: Two-view chest x-ray came back unremarkable for acute cardiopulmonary processes. Assessment & Plan Assessment & Plan (1) Cough: Code(s): R05.9 - Cough, unspecified Qualifiers: Cough type: acute Qualified Code(s): R05.1 - Acute cough Plan Patient is a 24-year-old female with history of asthma, who comes to the walk-in clinic complaining of persistent cough. She reports that her family had all come down with flu over the last week or so, and she was positive also. The worst of her symptoms have resolved, however she continues with a chronic cough mostly at night, and upon wakening in the morning, and it is productive of phlegm. While she is supine, she does not have a cough during the day. On exam, she is stable and unremarkable. Chest x-ray was negative for acute cardiopulmonary processes. Her lung sounds are clear to auscultation. However due to her report of coughing fits at night that sound like they become reactive, it seems like her asthma is flaring up due to likely mucus production while supine. I wrote her for a course of prednisone, and she can take benzonatate as needed during the day. She will follow up if symptoms persist or worsen, or go to the emergency department with worrisome symptoms. Orders: Orders SARS-CoV2/FLU/RSV 10/26/24 J06.9 - Acute upper respiratory infection, unspecified XR chest 2V 10/26/24 R05.9 - Cough, unspecified Medications: New benzonatate 200 mg PO BID-TID PRN 30 caps 0RF cough prednisone then take 3 tabs for 3 days, then 2 tabs for 3 days, then 1 tab for 3 days. 40 mg (4 x 10 mg) PO DAILY 30 tabs 0RF 3 days Coding Level of Care Code Est Pt Level 4 (66961) Diagnoses Acute cough R05.1 Cough type: acute
[2024-10-26 12:58] VITALS: BP 118/78; PULSE 81; TEMP 36.7; O2SAT 98; BMI 39.7
== END 2024-10-26 14:43 | disposition home or self-care (01) ==
PROVIDERS: PCP Pediatrics; Visit Provider Physician Assistant Medical
DX: R05.1 Acute cough (principal)

== ENCOUNTER → 2024-10-26 13:38 | Outpatient (BNV) | payer OTHER, SELFPAY | PROVIDERS: PCP Pediatrics; Visit Provider Radiology Diagnostic Radiology | DX: R05.9 Cough, unspecified (principal) | CPT/HCPCS: 71046 ==